=== PATIENT | male | born 1950 | race Caucasian/White ===

== ENCOUNTER → 2017-05-23 | Outpatient (REF) | payer MEDICARE, OTHER ==
[2017-05-23 18:31] LABS: APPEARANCE, URINE CLEAR (CLEAR); BACTERIA, URINE AUTO NEGATIVE (NEGATIVE); BILIRUBIN, URINE AUTO NEGATIVE (NEGATIVE); BLOOD, URINE BLOOD NEGATIVE (NEGATIVE); COLOR, URINE YELLOW (YELLOW); GLUCOSE, URINE (UA) AUTO NEGATIVE (NEGATIVE); KETONE, URINE AUTO NEGATIVE (NEGATIVE); LEUKOCYTE ESTERASE, URINE AUTO NEGATIVE (NEGATIVE); NITRITE, URINE AUTO NEGATIVE (NEGATIVE); PROTEIN, URINE AUTO NEGATIVE (NEGATIVE); RBC, URINE AUTO 0 /HPF (0-3); SQUAMOUS EPITHELIAL CELL UR AU 0 /HPF (0-6); UROBILINOGEN, URINE AUTO 0.2 mg/dL (0.0-2.0); WBC, URINE AUTO 0 /HPF (0-3)
== END ==
LOC: M SMT 17:09
DX: R97.20 Elevated prostate specific antigen [PSA] (principal); Z79.82 Long term (current) use of aspirin; Z79.899 Other long term (current) drug therapy
CPT/HCPCS: 81001

== ENCOUNTER → 2017-07-27 | Outpatient (CLI) | payer MEDICARE, OTHER | LOC: M SMT PRO 08:22 | DX: C61 Malignant neoplasm of prostate (principal) | CPT/HCPCS: G0416 ==

== ENCOUNTER → 2017-08-08 | Outpatient (CLI) | payer MEDICARE, OTHER ==
[~2017-08-08] MED LIST: ISOVUE-370 76% 100ML VIAL (Q9967) As Ordered
== END ==
LOC: M RAD 06:48
DX: C61 Malignant neoplasm of prostate (principal)
CPT/HCPCS: Q9967

== ENCOUNTER 2017-08-28 08:02 | Inpatient (IN) | payer MEDICARE, OTHER ==
[2017-08-28] MEDS: LR 1,000 ML IV ×2 (08:55→16:15)
[2017-08-28] MEDS ORDERED: PROPOFOL 200 MG/20 ML VIAL As Ordered (09:06)
[2017-08-28] MEDS ORDERED: LIDOCAINE 2% INJ 100 MG/5 ML SDV (FOR ANES.) As Ordered (09:06)
[2017-08-28] MEDS ORDERED: ROCURONIUM BROMIDE 50 MG/5 ML VIAL As Ordered ×3 (09:06→15:06)
[2017-08-28] MEDS ORDERED: fentaNYL 100 MCG/2 ML INJECTION (J3010) As Ordered ×2 (09:07)
[2017-08-28] MEDS ORDERED: MIDAZOLAM INJ 2 MG/2 ML VIAL (J2250) As Ordered (09:07)
[2017-08-28] MEDS ORDERED: ePHEDrine SULFATE 25 MG/5 ML(5MG/ML) SYRINGE As Ordered (12:12)
[2017-08-28] MEDS ORDERED: ATROPINE SULF 1MG/10ML SYRINGE (J0461) As Ordered (12:34)
[2017-08-28] MEDS ORDERED: HYDROmorphone HCL 2 MG/ML 1ML VIAL (J1170) As Ordered (12:36)
[2017-08-28] MEDS ORDERED: PHENYLephrine HCL 500 MCG/5 ML (100MCG/ML) SYRINGE (J2370) As Ordered (13:37)
[2017-08-28] MEDS ORDERED: GLYCOPYRROLATE INJ 0.2 MG/ML 2 ML VIAL As Ordered ×2 (15:11→16:21)
[2017-08-28] MEDS ORDERED: ONDANSETRON 4MG/2ML VIAL (J2405) As Ordered (15:11)
[2017-08-28] MEDS ORDERED: ONDANSETRON 4MG/2ML VIAL (J2405) IV ×2 (16:15→16:30)
[2017-08-28] MEDS ORDERED: fentaNYL 100 MCG/2 ML INJECTION (J3010) IV (16:15)
[2017-08-28] MEDS ORDERED: HYDROmorphone HCL 1 MG/ML SYRINGE (J1170) IV (16:15)
[2017-08-28] MEDS: GLYCOPYRROLATE INJ 0.2 MG/ML 2 ML VIAL IV (16:30)
[2017-08-28] MEDS ORDERED: MORPHINE 4 MG/ML 1ML VIAL/SYRINGE (J2270) IV (16:30)
[2017-08-28] MEDS ORDERED: oxyCODONE 5MG TAB PO (16:30)
[2017-08-28] MEDS: PERCOCET 5MG/325MG TAB PO (16:36)
[2017-08-28 16:38] LABS: HEMATOCRIT 40.1 % (42.0-52.0); HEMOGLOBIN 13.2 g/dl (13.5-17.5); MEAN CORPUSCULAR HEMOGLOBIN 31.9 pg (27.0-33.0); MEAN CORPUSCULAR HGB CONC 32.9 g/dl (32.0-36.5); MEAN CORPUSCULAR VOLUME 96.9 fl (80.0-96.0); PLATELET COUNT, AUTOMATED 172 10^3/uL (150-450); RED BLOOD COUNT 4.14 10^6/uL (4.30-6.10); RED CELL DISTRIBUTION WIDTH 13.1 % (11.5-14.5); WHITE BLOOD COUNT 8.6 10^3/uL (4.0-10.0)
[2017-08-28 16:56] LABS: ANION GAP 4 MEQ/L (8-16); BLOOD UREA NITROGEN 18 MG/DL (7-18); CALCIUM LEVEL 8.2 MG/DL (8.8-10.2); CARBON DIOXIDE LEVEL 29 MEQ/L (21-32); CHLORIDE LEVEL 111 MEQ/L (98-107); CREATININE FOR GFR 1.21 MG/DL (0.70-1.30); GLOMERULAR FILTRATION RATE > 60.0 (>49); GLUCOSE, FASTING 108 MG/DL (70-100); POTASSIUM SERUM 4.4 MEQ/L (3.5-5.1); SODIUM LEVEL 144 MEQ/L (136-145)
[2017-08-28] MEDS: KCL 20MEQ IN D5/0.45NS 1000ML 1,000 ML IV (17:47)
[2017-08-28] MEDS: KETOROLAC 30 MG/ML VIAL (J1885) IV (18:03)
[2017-08-28] MEDS: SIMVASTATIN 20 MG TAB PO (20:38)
[2017-08-28] MEDS: PANTOPRAZOLE 40MG INJ (PROTONIX) (C9113) IV (20:38)
[2017-08-28] MEDS: ACETAMINOPHEN 650MG ER TAB (TYLENOL ARTHRITIS) PO (20:40)
[2017-08-29] MEDS: KCL 20MEQ IN D5/0.45NS 1000ML 1,000 ML IV ×2 (02:20→11:03)
[2017-08-29] MEDS: KETOROLAC 30 MG/ML VIAL (J1885) IV ×2 (02:21→11:03)
[2017-08-29] MEDS: ACETAMINOPHEN 650MG ER TAB (TYLENOL ARTHRITIS) PO ×2 (05:42→14:49)
[2017-08-29] MEDS: LevoFLOXacin 500 MG TABLET PO (05:42)
[2017-08-29 06:04] LABS: HEMATOCRIT 39.5 % (42.0-52.0); MEAN CORPUSCULAR HGB CONC 32.9 g/dl (32.0-36.5); MEAN CORPUSCULAR VOLUME 97.3 fl (80.0-96.0); PLATELET COUNT, AUTOMATED 167 10^3/uL (150-450); RED BLOOD COUNT 4.06 10^6/uL (4.30-6.10); RED CELL DISTRIBUTION WIDTH 13.1 % (11.5-14.5); WHITE BLOOD COUNT 9.4 10^3/uL (4.0-10.0)
[2017-08-29 06:23] LABS: ANION GAP 4 MEQ/L (8-16); BLOOD UREA NITROGEN 19 MG/DL (7-18); CALCIUM LEVEL 8.5 MG/DL (8.8-10.2); CARBON DIOXIDE LEVEL 29 MEQ/L (21-32); CHLORIDE LEVEL 108 MEQ/L (98-107); CREATININE FOR GFR 1.21 MG/DL (0.70-1.30); GLOMERULAR FILTRATION RATE > 60.0 (>49); GLUCOSE, FASTING 104 MG/DL (70-100); POTASSIUM SERUM 4.8 MEQ/L (3.5-5.1); SODIUM LEVEL 141 MEQ/L (136-145)
== END 2017-08-29 15:00 | disposition home or self-care (01) | DRG 708 ==
LOC: M OR 08:02 → M MS5PR 17:05
PROC: 0VT04ZZ Resection of Prostate, Percutaneous Endoscopic Approach (ICD-10-PCS; principal; 2017-08-28 10:00)
PROC: 07TC4ZZ Resection of Pelvis Lymphatic, Percutaneous Endoscopic Approach (ICD-10-PCS; 2017-08-28 10:00)
PROC: 0VT34ZZ Resection of Bilateral Seminal Vesicles, Percutaneous Endoscopic Approach (ICD-10-PCS; 2017-08-28 10:00)
PROC: 8E0W4CZ Robotic Assisted Procedure of Trunk Region, Percutaneous Endoscopic Approach (ICD-10-PCS; 2017-08-28 10:00)
PROC: 0VBQ4ZZ Excision of Bilateral Vas Deferens, Percutaneous Endoscopic Approach (ICD-10-PCS; 2017-08-28 10:00)
DX: C61 Malignant neoplasm of prostate (principal)

== ENCOUNTER → 2018-01-03 | Outpatient (REF) | payer MEDICARE, OTHER ==
[2018-01-03 14:45] LABS: APPEARANCE, URINE CLEAR (CLEAR); BACTERIA, URINE AUTO NEGATIVE (NEGATIVE); BILIRUBIN, URINE AUTO NEGATIVE (NEGATIVE); BLOOD, URINE BLOOD NEGATIVE (NEGATIVE); COLOR, URINE YELLOW (YELLOW); GLUCOSE, URINE (UA) AUTO NEGATIVE (NEGATIVE); KETONE, URINE AUTO NEGATIVE (NEGATIVE); LEUKOCYTE ESTERASE, URINE AUTO NEGATIVE (NEGATIVE); MUCUS, URINE SMALL (NEGATIVE); NITRITE, URINE AUTO NEGATIVE (NEGATIVE); PROTEIN, URINE AUTO NEGATIVE (NEGATIVE); RBC, URINE AUTO 2 /HPF (0-3); SQUAMOUS EPITHELIAL CELL UR AU 0 /HPF (0-6); UROBILINOGEN, URINE AUTO 0.2 mg/dL (0.0-2.0); WBC, URINE AUTO 2 /HPF (0-3)
== END ==
LOC: M SMT 13:40
DX: C61 Malignant neoplasm of prostate (principal); Z79.899 Other long term (current) drug therapy
CPT/HCPCS: 81001

== ENCOUNTER → 2023-03-19 | Outpatient (CLI) | payer MEDICARE, OTHER ==
[~2023-03-19] MED LIST changes: +ACET650T61 PO; +ALLO300T2 PO; +ASPI81CH49 PO; +ASPI81TA2 PO; +ASPI81TA26 PO; +BUPR150T12 PO; +CIPR500T3 PO; +COUM2.5T17 PO; +CYCL10TA3 PO; +IRON325T3 PO; -ISOVUE-370 76% 100ML VIAL (Q9967) As Ordered; +MAG; +MAGO400T PO; +NAPR-885 PO; +NAPR500T2; +OMEP1CAP73 PO; +OMEP20CA3 PO; +OXYC1TAB23 PO; +PERCOCET PO; +ROPI2TAB24 PO; +SERT-138 PO; +SERT-141 PO; +SIMV20TA2 PO; +TYLE325T5 PO; +VIAG100T PO
== END ==
LOC: M RADPRO 09:11
PROVIDERS: ATTEND Internal Medicine Critical Care Medicine
DX: J98.6 Disorders of diaphragm (principal)